=== PATIENT | male | born 1990 | race Caucasian/White ===

== ENCOUNTER → 2019-04-30 14:57 | Outpatient (CLI) | payer OTHER, SELFPAY ==
[2019-04-30 18:15] LABS: Urine Chlamydia NOT DETECTED
[2019-05-01 09:04] LABS: Urine N gonorrhoeae DETECTED
== END ==
PROVIDERS: Visit Provider Physician Assistant
DX: R30.0 Dysuria (principal)
CPT/HCPCS: 87086; 87491; 87591

== ENCOUNTER → 2019-04-30 15:30 | Outpatient (CLI) | payer OTHER, SELFPAY ==
[2019-04-30 18:53] LABS: Hepatitis B Surface Antigen NEGATIVE s/c (NEGATIVE)
[2019-04-30 19:11] LABS: HIV 1 and 2 Antibody NEGATIVE (NEGATIVE); Hep C Virus Ab w/Reflex Quant NEGATIVE s/c (NEGATIVE)
[2019-05-03 13:17] LABS: RPR Screen Nonreactive (Nonreactive)
== END ==
PROVIDERS: Visit Provider Physician Assistant
DX: R30.0 Dysuria (principal)
CPT/HCPCS: 36415; 86592; 86703; 86803; 87340

== ENCOUNTER → 2020-01-01 18:21 | Outpatient (CLI) | payer OTHER, MEDICAID, SELFPAY ==
[2020-01-01 20:25] LABS: Urine N gonorrhoeae NOT DETECTED
[2020-01-01 20:40] LABS: Urine Chlamydia NOT DETECTED
== END ==
PROVIDERS: Visit Provider Physician Assistant
DX: Z11.3 Encounter for screening for infections with a predominantly sexual mode of transmission (principal)
CPT/HCPCS: 87491; 87591

== ENCOUNTER → 2021-04-21 10:50 | Outpatient (CLI) | payer OTHER, MEDICAID, SELFPAY ==
[2021-04-21 13:16] LABS: Urine N gonorrhoeae NOT DETECTED
[2021-04-21 13:17] LABS: Urine Chlamydia NOT DETECTED
== END ==
PROVIDERS: Visit Provider Physician Assistant
DX: Z11.3 Encounter for screening for infections with a predominantly sexual mode of transmission (principal)
CPT/HCPCS: 87491; 87591

== ENCOUNTER → 2021-05-06 14:10 | Outpatient (CLI) | payer OTHER, MEDICAID, SELFPAY | PROVIDERS: Visit Provider Physician Assistant | DX: R30.9 Painful micturition, unspecified (principal) | CPT/HCPCS: 87086 ==